=== PATIENT | male | born 1995 | race Caucasian/White ===

== ENCOUNTER 2017-03-09 19:44 | Observation (INO) | payer OTHER ==
[2017-03-09] MEDS ORDERED: Morphine INJ* 2 MG/ML 1 ML SYRINGE IV ONE (23:01)
[2017-03-09] MEDS ORDERED: NS 0.9% 1000 ML* 1,000 ML IV ONE (23:01)
[2017-03-09] MEDS ORDERED: Ondansetron INJ* 2 MG/ML VIAL IV ONE (23:01)
--- NOTE | 2017-03-09 23:22 | ED ---
Yana Marcelo Matthew, scribed for Avni Archer MD on 03/09/17 at 2300 . Abdominal Pain/Male - HPI Summary HPI Summary: A 21 y/o male presents to the ED with gradually worsening, constant, RLQ abdominal pain since 08:00 this morning. The pain is described as shooting. The pain awoke the patient from sleep this morning. Associated symptoms include nausea and minimal fever. The patient took Advil without relief. He was able to eat today. - History of Current Complaint Chief Complaint: EDAbdPain Stated Complaint: ABD PAIN,FEVER Time Seen by Provider: 03/09/17 22:47 Hx Obtained From: Patient Onset/Duration: Gradual Onset, Lasting Hours, Still Present Timing: Constant Severity Initially: Moderate Severity Currently: Moderate Pain Intensity: 7 Pain Scale Used: 0-10 Numeric Location: Discrete At: RLQ Radiates: No Character: Other: - Shooting Aggravating Factor(s): Nothing Alleviating Factor(s): Nothing Associated Signs And Symptoms: Positive: Fever, Nausea. Negative: Vomiting - Allergies/Home Medications Allergies/Adverse Reactions: Allergies Allergy/AdvReac Type Severity Reaction Status Date / Time No Known Allergies Allergy Verified 03/09/17 19:52 PMH/Surg Hx/FS Hx/Imm Hx Previously Healthy: Yes Endocrine/Hematology History: Denies: Hx Diabetes Infectious Disease History: No Infectious Disease History: Denies: Traveled Outside the [place] in Last 30 Days - Family History Known Family History: Negative: Cardiac Disease, Hypertension, Diabetes - Social History Occupation: Student Alcohol Use: None Hx Substance Use: No Substance Use Type: Reports: None Hx Tobacco Use: No Smoking Status (MU): Never Smoked Tobacco Review of Systems Positive: Fever Eyes: Negative ENT: Negative Cardiovascular: Negative Respiratory: Negative Positive: Abdominal Pain - RLQ, Nausea. Negative: Vomiting Genitourinary: Negative Musculoskeletal: Negative Skin: Negative Neurological: Negative Psychological: Normal All Other Systems Reviewed And Are Negative: Yes Physical Exam Triage Information Reviewed: Yes Vital Signs On Initial Exam: Initial Vitals Temp Pulse Resp BP Pulse Ox 99.4 F 78 16 127/78 100 03/09/17 21:57 03/09/17 21:57 03/09/17 21:57 03/09/17 21:57 03/09/17 21:57 Vital Signs Reviewed: Yes Appearance: Positive: Well-Appearing, Pain Distress - mild discomfort Skin: Positive: Warm Head/Face: Positive: Normal Head/Face Inspection Eyes: Positive: MARTÍN ENT: Positive: Hearing grossly normal Neck: Positive: Supple Respiratory/Lung Sounds: Positive: Clear to Auscultation, Breath Sounds Present Cardiovascular: Positive: RRR Abdomen Description: Positive: Soft, Guarding, McBurney's Point Tenderness. Negative: No Organomegaly, Distended Bowel Sounds: Positive: Present Musculoskeletal: Positive: Strength/ROM Intact Neurological: Positive: Sensory/Motor Intact, Alert, Oriented to Person Place, Time Psychiatric: Positive: Affect/Mood Appropriate Diagnostics - Vital Signs Vital Signs Temp Pulse Resp BP Pulse Ox 03/09/17 21:57 99.4 F 78 16 127/78 100 - Laboratory Result Diagrams: 03/09/17 23:31 03/09/17 23:31 Lab Statement: Any lab studies that have been ordered have been reviewed, and results considered in the medical decision making process. - CT A/P CT CT Interpretation: Positive (See Comments) - Impression: Findings probably represented appendicitis complicated by perforation. No free air or abscess. CT Interpretation Completed By: Radiologist Abdominal Pain Fem Course/Dx - Course Assessment/Plan: A 21 y/o male presents to the ED with gradually worsening, constant, RLQ abdominal pain since 08:00 this morning. The pain is described as shooting. The pain awoke the patient from sleep this morning. Associated symptoms include nausea and minimal fever. The patient took Advil without relief. Labs were reviewed and shows WBC of 12.7. CT A/P shows findings probably represented appendicitis complicated by perforation. No free air or abscess. Discussed the case with Dr. Rich who will admit the patient. - Diagnoses Provider Diagnoses: Perforated appendicitis - Provider Notifications Discussed Care Of Patient With: Dr. Rich (Surgery) at 03:29 -- Notified of patient's history and will admit the patient. Discharge - Discharge Plan Condition: Fair Disposition: ADMITTED TO [facility] documentation as recorded by the Yana soler Matthew accurately reflects the service I personally performed and the decisions made by me, Avni Archer MD.
[2017-03-09 23:58] LABS: Hematocrit 47 % (42-52); Hemoglobin 15.9 g/dl (14.0-18.0); Mean Corpuscular HGB Conc 34 g/dl (31-36); Mean Corpuscular Hemoglobin 30 pg (27-31); Mean Corpuscular Volume 87 fL (80-94); Mean Platelet Volume 9 um3 (7.4-10.4); Red Blood Count 5.35 10^6/ul (4.0-5.4); Red Cell Distribution Width 13 % (10.5-15); White Blood Count 12.7 10^3/ul (3.5-10.8)
[2017-03-10 00:19] LABS: ALT 10 U/L (7-52); AST 16 U/L (13-39); Albumin 4.7 g/dL (3.2-5.2); Alkaline Phosphatase 89 U/L (34-104); Anion Gap 8 mmol/L (2-11); Blood Urea Nitrogen 10 mg/dL (6-24); C Reactive Protein 25.63 mg/L (< 5.00); CO2 Carbon Dioxide 28 mmol/L (22-32); Calcium 10.1 mg/dL (8.6-10.3); Chloride 98 mmol/L (101-111); EGFR African American 153.5 (>60); EGFR Non-African American 119.4 (>60); Globulin 3.1 g/dL (2-4); Glucose 102 mg/dL (70-100); Lipase < 10 U/L (11.0-82.0); Potassium 4.1 mmol/L (3.5-5.0); Sodium 134 mmol/L (133-145); Total Protein 7.8 g/dL (6.4-8.9)
[2017-03-10] MEDS ORDERED: Iohexol 300* (CONTRAST) 10 ML SDV IV ONE (02:04)
[2017-03-10 02:30] LABS: Urine Bilirubin Negative (Negative); Urine Glucose Negative (Negative); Urine Nitrite Negative (Negative)
[2017-03-10] MEDS ORDERED: Morphine INJ* 4 MG/ML 1 ML SYRINGE IV ONE (03:18)
[2017-03-10] MEDS ORDERED: Ondansetron INJ* 2 MG/ML VIAL ONE ×2 (03:31→04:41)
[2017-03-10] MEDS ORDERED: Ondansetron INJ* 2 MG/ML VIAL IV ONE (03:33)
[2017-03-10] MEDS ORDERED: Midazolam* 1 MG/ML 2 ML VIAL (2 MG) ONE (03:53)
[2017-03-10] MEDS ORDERED: fentaNYL* 50 MCG/ML 2 ML VIAL (100 MCG VIAL) ONE ×2 (03:53→04:48)
[2017-03-10] MEDS ORDERED: Bupivacaine 0.25% EPI 200,000* 30 ML SDV ONE (03:53)
[2017-03-10] MEDS ORDERED: ceFOXitin 2 GM IVPREMIX* 2 GM/50 ML BAG ONE (04:22)
[2017-03-10] MEDS ORDERED: Propofol* 10 MG/ML 20 ML BTL IV PUSH ONE (04:41)
[2017-03-10] MEDS ORDERED: Succinylcholine* 20 MG/ML 10 ML VIAL ONE (04:41)
[2017-03-10] MEDS ORDERED: Dexamethasone IV* 4 MG/ML 1 ML (4 MG) ONE (04:41)
[2017-03-10] MEDS ORDERED: Lidocaine 2% PF * 5 ML VIAL ONE (04:41)
[2017-03-10] MEDS ORDERED: Cisatracurium* 2 MG/ML MDV 5 ML ONE (05:10)
[2017-03-10] MEDS ORDERED: Metoclopramide IV* 5 MG/ML 2 ML VIAL IV PRN (05:50)
[2017-03-10] MEDS ORDERED: Ketorolac INJ* 30 MG/ML 1 ML VIAL IV PRN (05:50)
[2017-03-10] MEDS ORDERED: fentaNYL* 50 MCG/ML 2 ML VIAL (100 MCG VIAL) IV PRN (05:50)
[2017-03-10] MEDS ORDERED: Scopolamine 1.5 mg* PATCH TRANSDERM PRN (05:50)
[2017-03-10] MEDS ORDERED: Ketorolac INJ* 30 MG/ML 1 ML VIAL ONE (06:01)
--- NOTE | 2017-03-10 06:03 | HP ---
H&P (Free Text) History and Physical: Surgery Asked by Dr. Archer to evaluate a pt. with abd.pain and a CT c/w perforated appendicitis. Cesar Carlos is a 21 y.o. male who reports he went to bed last night without any pain, just recent head cold, and he woke with an aching pain in the general abdomen. Over the day the pain worsened and moved to the low abdomen. Then he began to feel nausea. He felt he had a fever, he denies diarrhea, he had some constipation. He denies dysuria. He had someone bring him to the ER and here he had the CT scan which showed possible perforated appendicitis. He has never had similar pain. He is hungry. PMHx: denies Meds: NKDA SH; neg tob., occ. EtOH, neg. IVDA FH: neg. ROS: neg. PE: general: WDWN male in NAD Vital Signs 03/09/17 03/09/17 03/10/17 21:57 23:31 03:17 Temperature 99.4 F 99.2 F Pulse Rate 78 90 Respiratory 16 16 16 Rate Blood Pressure 127/78 119/81 (mmHg) O2 Sat by Pulse 100 99 Oximetry 03/10/17 03/10/17 03/10/17 03:26 04:00 05:51 Temperature 99.2 F 99.1 F Pulse Rate 90 84 Respiratory 12 16 18 Rate Blood Pressure 119/81 174/97 (mmHg) O2 Sat by Pulse 100 Oximetry 03/10/17 03/10/17 05:55 05:59 Temperature Pulse Rate 70 68 Respiratory 17 16 Rate Blood Pressure 151/98 151/95 (mmHg) O2 Sat by Pulse 100 100 Oximetry HEENT: anicteric sclerae, moist oral mucosa; neg. cervical adenopathy lungs: clear to ausc. heart: reg abd: occ BS,soft, some guarding in RLQ without rebound; there is no CVAT ext: neg, cyanosis or edema. Laboratory Results - last 24 hr 03/09/17 03/09/17 03/09/17 23:31 23:31 23:31 WBC 12.7 H RBC 5.35 Hgb 15.9 Hct 47 MCV 87 MCH 30 MCHC 34 RDW 13 Plt Count 185 MPV 9 Neut % (Auto) 81.5 Lymph % (Auto) 9.8 L Hale % (Auto) 7.6 Eos % (Auto) 0.8 Baso % (Auto) 0.3 Absolute Neuts (auto) 10.4 H Absolute Lymphs (auto) 1.3 Absolute Monos (auto) 1.0 H Absolute Eos (auto) 0.1 Absolute Basos (auto) 0 Absolute Nucleated RBC 0 Nucleated RBC % 0 Sodium 134 Potassium 4.1 Chloride 98 L Carbon Dioxide 28 Anion Gap 8 BUN 10 Creatinine 0.83 Est GFR ( Amer) 153.5 Est GFR (Non-Af Amer) 119.4 BUN/Creatinine Ratio 12.0 Glucose 102 H Lactic Acid 0.8 Calcium 10.1 Magnesium 2.0 Total Bilirubin 0.80 AST 16 ALT 10 Alkaline Phosphatase 89 C-Reactive Protein 25.63 H Total Protein 7.8 Albumin 4.7 Globulin 3.1 Albumin/Globulin Ratio 1.5 Lipase < 10 L Urine Color Urine Appearance Urine pH Ur Specific [place] Urine Protein Urine Ketones Urine Blood Urine Nitrate Urine Bilirubin Urine Urobilinogen Ur Leukocyte Esterase Urine Glucose 03/10/17 02:15 WBC RBC Hgb Hct MCV MCH MCHC RDW Plt Count MPV Neut % (Auto) Lymph % (Auto) Hale % (Auto) Eos % (Auto) Baso % (Auto) Absolute Neuts (auto) Absolute Lymphs (auto) Absolute Monos (auto) Absolute Eos (auto) Absolute Basos (auto) Absolute Nucleated RBC Nucleated RBC % Sodium Potassium Chloride Carbon Dioxide Anion Gap BUN Creatinine Est GFR ( Amer) Est GFR (Non-Af Amer) BUN/Creatinine Ratio Glucose Lactic Acid Calcium Magnesium Total Bilirubin AST ALT Alkaline Phosphatase C-Reactive Protein Total Protein Albumin Globulin Albumin/Globulin Ratio Lipase Urine Color Yellow Urine Appearance Clear Urine pH 7.0 Ur Specific [place] 1.010 Urine Protein Negative Urine Ketones 1+ H Urine Blood Negative Urine Nitrate Negative Urine Bilirubin Negative Urine Urobilinogen Negative Ur Leukocyte Esterase Negative Urine Glucose Negative A/P: Probable appendicitis. will proceed to OR for laparoscopic appendectomy. I have explained the nature of the procedure, its risks, benefits, and alternatives. He understands and agrees to proceed. Lupe
[2017-03-10] MEDS ORDERED: Ondansetron INJ* 2 MG/ML VIAL IV PRN (06:06)
[2017-03-10] MEDS ORDERED: oxyCODONE/Acetamin 5/325 MG* TAB PO PRN (06:06)
[2017-03-10] MEDS ORDERED: HYDROmorphone* 1 MG/ML 1 ML SYR ONE (06:37)
[2017-03-10] MEDS: HYDROmorphone* 1 MG/ML 1 ML SYR IV PRN ×3 (06:38→06:56)
--- NOTE | 2017-03-10 07:56 | RAD ---
INDICATION: 21-year-old with right lower quadrant pain, nausea and vomiting, and fever COMPARISON: None TECHNIQUE: Axial source images were obtained from the hemidiaphragms to the symphysis pubis following administration of oral and intravenous contrast. 79 mL Omnipaque 300 was utilized. Coronal and sagittal reconstructed images were acquired. Lung bases: The lung bases are clear. Liver: The liver is normal in size. There are no masses. There is no ductal dilatation. Gallbladder: There are no calcified gallstones. There is no evidence of wall thickening or pericholecystic fluid. Spleen: The spleen is normal in size. There are no masses. Pancreas: There is no focal pancreatic mass or ductal dilatation. Adrenal glands: There is no evidence of adrenal mass. Kidneys: The kidneys are normal in size and position. There are prompt nephrograms and there is prompt excretion bilaterally. There are no renal parenchymal masses. There is no evidence of nephrolithiasis. Adenopathy: There is no evidence of adenopathy by size criteria. Fluid collections: There are no free or localized fluid collections. Vessels:There are no significant atherosclerotic changes involving the aorta. There is no focal aneurysm. The iliac vessels are normal in caliber. The IVC appears normal. GI tract: The appendix is dilated and fluid-filled. There is an appendicolith. There is extensive periappendiceal inflammatory change. There is periappendiceal enhancement with findings suggestive of microperforation with microabscesses. There is no free air. There is thickening of the adjacent cecum. There is significant free fluid extending into the dependent portion of the pelvis. Pelvic organs: The prostate and seminal vesicles appear normal Bladder: There are no bladder masses. Abdominal and pelvic soft tissues: The extraperitoneal abdominal and pelvic soft tissues appear normal.. Osseous structures: There are no acute osseous findings. Other: None IMPRESSION: CT FINDINGS CONSISTENT WITH ACUTE APPENDICITIS WITH PROBABLE CONTAINED PERFORATION.
[2017-03-10] MEDS ORDERED: ceFOXitin(*) 1 GM in NS 0.9% 50 ML* 50 ML IVPB SCH (08:30)
[2017-03-10] MEDS: oxyCODONE/Acetamin 5/325 MG* TAB PO PRN ×2 (09:20→14:10)
[2017-03-10] MEDS: ceFOXitin(*) 1 GM in NS 0.9% 50 ML* 50 ML IVPB SCH ×3 (11:09→23:13)
--- NOTE | 2017-03-10 16:46 | PN ---
Progress Note - Progress Note Note: Surgery Feels better. Will continue abx overnight, if WBC better in AM, consider d/c home on oral abx. CLFoster
[2017-03-11] MEDS: ceFOXitin(*) 1 GM in NS 0.9% 50 ML* 50 ML IVPB SCH (05:10)
[2017-03-11 05:51] LABS: Hematocrit 43 % (42-52); Hemoglobin 14.5 g/dl (14.0-18.0); Mean Corpuscular HGB Conc 34 g/dl (31-36); Mean Corpuscular Hemoglobin 30 pg (27-31); Mean Corpuscular Volume 89 fL (80-94); Mean Platelet Volume 9 um3 (7.4-10.4); Red Blood Count 4.84 10^6/ul (4.0-5.4); Red Cell Distribution Width 13 % (10.5-15); White Blood Count 9.6 10^3/ul (3.5-10.8)
[2017-03-11 07:53] VITALS: BP 122/64
--- NOTE | 2017-03-11 09:31 | PN ---
Progress Note - Progress Note Note: Surgery Progress: S: POD #1. Feels better. Using Percocet w/ good effect. Haile diet. O: Vital Signs - 8 hr 03/11/17 03/11/17 03/11/17 03:58 07:51 07:54 Temperature 98.1 F 97.8 F Pulse Rate 55 70 Respiratory 16 18 18 Rate Blood Pressure 116/61 122/64 (mmHg) O2 Sat by Pulse 100 99 Oximetry Intake and Output Last 24 Hours 03/09/17 03/10/17 03/11/17 03/12/17 06:59 06:59 06:59 06:59 Intake Total 2300 1798 Output Total 2450 Balance 2300 -652 Weight 130 lb Intake: IV Fluids 2300 929 ABX - CEFOXITIN 108 NS (0.9%) 45 lr 1300 IVPB 109 Oral 760 Output: Urine 2450 Other: Estimated Blood Loss min Comment Heart: reg Lungs: clear ant Abd: +BS; lap incisions ok; soft; mild tenderness Labs: Laboratory Tests 03/11/17 04:56 WBC 9.6 A/P: s/p lap appy, doing well; home today on Augmentin; instructions reviewed.
[2017-03-11] MEDS: oxyCODONE/Acetamin 5/325 MG* TAB PO PRN (10:24)
--- NOTE | 2017-03-12 01:00 | DS ---
DISCHARGE SUMMARY: DATE OF ADMISSION: 03/10/17 DATE OF DISCHARGE: 03/11/17 HOSPITAL COURSE: Please refer to admission history and physical for admission details. The patient was taken to the operating room the morning of 03/10/17, at which time he underwent laparoscopic appendectomy for acute appendicitis ( see operative note for details). He has had an uneventful postoperative course and as of the morning of discharge, he is tolerating diet with pain controlled well with oral analgesics. PHYSICAL EXAMINATION: Temperature 97.8, blood pressure 122/64, pulse 70, respirations 18, and room air saturation 99%. General: Well nourished, well developed and in no acute distress. Heart: Regular rate and rhythm. Lungs: Clear to auscultation anteriorly. Abdomen: Bowel sounds present. Laparoscopic incisions sites are clean with no evidence of infection. Abdomen is soft with mild tenderness (expected). IMPRESSION: Status post laparoscopic appendectomy, doing well. PLAN: Home today on oral antibiotics (Augmentin 875 mg b.i.d. x1 week). He has a followup with our office on 03/18/17. Instructions were reviewed regarding wound care, diet and activity. GUSTAVO HELMS CC: [facility] * [id number]/DEDRICK #: [id number] DIANE
--- NOTE | 2017-03-19 10:44 | OP ---
DATE OF OPERATION: 03/10/17 - ROOM #342 DATE OF : [birth year] SURGEON: Cecy Rich MD. SQL DATABASE ADMINISTRATOR: None. ANESTHESIOLOGIST: Mally Adhikari MD ANESTHESIA: General. PRE-OP DIAGNOSIS: Appendicitis. POST-OP DIAGNOSIS: Appendicitis. OPERATIVE PROCEDURE: Laparoscopic appendectomy. INDICATIONS: This patient is a 21-year-old male who presented to the emergency room with abdominal pain. Please see admission history and physical for details of findings at the time of admission. DESCRIPTION OF PROCEDURE: He was prepared for surgery and brought to the operating room. He was placed on the OR table in a supine position and given general anesthesia. The abdomen was prepped and draped in the usual sterile fashion. After infiltrating with local anesthetic, an incision was made in the infraumbilical area and subcutaneous tissue was divided bluntly. The fascia was grasped and incised, and a 0 Biosyn stitch was placed on either side of the fascial incision. The trocar was inserted into the abdomen and the abdomen was insufflated. Then under direct visualization, after infiltrating with local anesthetic, a suprapubic port was placed and a left flank port was placed. These were placed under direct visualization. The area of the appendix was inspected and it was noted to be very edematous in a retrocecal location superiorly. This was dissected free from surrounding tissue and once the base of the appendix was identified, it was cleared and an Endo GI stapler was fired across the base of the appendix. Another firing was fired across the mesoappendix. The appendix was placed in an EndoCatch bag and withdrawn from the abdomen through the infraumbilical port site. The right lower quadrant and pelvis were irrigated with saline. The irrigation fluid was evacuated. The appendix was noted to have been perforated on the CAT scan, but appeared essentially intact on inspection, just very edematous. It did rupture as it was being handled. Once all the irrigation fluid was evacuated, the ports were withdrawn under direct visualization. The previously placed 0 Biosyn was used to close the fascia at the infraumbilical port site, and 4-0 Biosyn was used to close the skin of all incisions. Steri-Strips were applied. All sponge and instrument counts were correct. The patient tolerated the procedure well and was transferred to Recovery in a stable condition. [id number]/[facility] #: [id number] [facility]
== END 2017-03-11 10:45 | disposition home or self-care (01) ==
LOC: ED 19:44 → OR 03-10 03:51 → SSU 03-10 08:05
PROVIDERS: ADMIT Surgery; ATTEND Surgery
PROC: 0DTJ4ZZ Resection of Appendix, Percutaneous Endoscopic Approach (ICD-10-PCS; principal; 2017-03-10 04:30)
DX: K35.80 Unspecified acute appendicitis (principal)
CPT/HCPCS: 36415; 74177; 80053; 81003; 83605; 83690; 83735; 85025; 86140; 88304; 96374; 96375; 96376; 99283; A9270-GY; C1776; G0378; J0330; J0694; J1100; J1170; J1885; J2250; J2270; J2405; J2704; J3010; Q9967